=== PATIENT | male | born 1970 | race Caucasian/White ===

== ENCOUNTER 2016-10-18 22:01 | Inpatient (IN) | payer MEDICARE, OTHER ==
--- NOTE | ~2016-10-18 | HP ---
History And Physical [id number] [place]. [address] NAME: KANDACE HOLLAND : 70 STATUS : ADM IN [facility]#: [id number] AGE: 45 ADM/REG DATE : 10/19/16 MR#: [id number] REPORT SERV DATE: 10/19/16 DICTATED BY: THIAGO MARIE DATE: 10/19/16 REPORT STATUS : Draft TRANSCRIBED BY: MODL DATE: 10/19/16 DATE OF ADMISSION: 10/19/2016 CHIEF COMPLAINT: Nausea, vomiting, and diarrhea. HISTORY OF PRESENT ILLNESS: Mr. Holland is a 45-year-old white male with ESRD. He dialyzes at [facility] on Monday, Monday, and Monday through a left arm fistula since 2013. His last dialysis session was on October 14. After dialysis that day. He had been complaining of nausea, vomiting, no oral intake, and diarrhea 10-12 times per day. He did not go to his regularly scheduled dialysis on October 18 because of his GI illness. However, he became progressively more weak and dyspneic and came to the ER late last night. Here he was found to have pulmonary edema on chest x-ray with a BNP greater than 5000. White count was 15.7 thousand, but CT scan showed no acute intraabdominal process. Liver function tests and lipase were normal. His potassium was 7.0, and the dialysis nurse vacation planner was called in for urgent hemodialysis. He was given doses of Levaquin and Flagyl empirically. Clinically, he is much improved. O2 sats are 100% after ultrafiltration of 3.5 kg on dialysis overnight. PAST MEDICAL HISTORY: 1. ESRD, [place] Monday, Monday, Monday left arm fistula since 2013. 2. Hypertension. 3. Anemia. 4. Asthma, COPD with ongoing tobacco abuse. 5. History of laparoscopic cholecystectomy. 6. "Congestive heart failure." EF on documented in the records. He had respiratory failure requiring the ventilator in 03/2016. MEDICATIONS ON ADMISSION: Albuterol inhaler, Norvasc 5 mg b.i.d., aspirin, Nephro-Andrew, Lasix 80 mg daily, hydralazine 100 mg t.i.d., Atrovent inhaler twice a day, losartan 50 mg twice a day, metoprolol 100 mg three times per day, Dulera inhaler 2 puffs twice a day, Prilosec 20 mg daily, Renvela 3200 mg with meals, and sodium bicarb on nondialysis days. FAMILY HISTORY: Noncontributory to current admission. SOCIAL HISTORY: Smokes a pack of cigarettes every 3 days. He is and lives in [place], [place]. REVIEW OF SYSTEMS: Please see HPI for pertinent details. Most significant for nausea, vomiting, poor appetite, diarrhea, black stools, dyspnea, and weakness. PHYSICAL EXAMINATION: VITAL SIGNS: Temperature 98.2, pulse 76, respirations 29, blood pressure 164/100, 57.7 kg with a dry weight recorded at 56.5 kg, 100% O2 saturation on 4 L per nasal cannula. GENERAL: The patient is seen on dialysis with his left arm fistula blood flow of 430 mL/minute. He is in no distress. Awake, alert, oriented, cooperative with the exam. History And Physical [address] [address] NAME: KANDACE HOLLAND : 70 STATUS : ADM IN [facility]#: [id number] AGE: 45 ADM/REG DATE : 10/19/16 MR#: [id number] REPORT SERV DATE: 10/19/16 DICTATED BY: THIAGO MARIE DATE: 10/19/16 REPORT STATUS : Draft TRANSCRIBED BY: KRYSTA DATE: 10/19/16 NEURO: Grossly nonfocal. EYES: Sclerae without icterus. Conjunctivae not injected. RESPIRATORY: He has diffuse bilateral rhonchi without dyspnea. CARDIAC: Regular rate and rhythm with 2/6 murmur. No rub. ABDOMEN: Thin, soft, mildly tender to palpation with some guarding. No rebound or peritoneal signs. Bowel sounds are present throughout. EXTREMITIES: Without edema. SKIN: Without rash. LABORATORY DATA: Sodium 138, potassium 7, bicarb 22, BUN 70, creatinine 13.9, calcium 10.2, albumin 4.1. Liver function tests normal. Lipase 235. BNP greater than 5000. White count 15.7 thousand, hemoglobin 12.1, platelets 483,000. ASSESSMENT AND PLAN: Mr. Holland has ESRD with missed dialysis since October 14 who presents with abdominal pain, leukocytosis, nausea, vomiting, diarrhea, volume overload, hypertension, and hyperkalemia. Admit to the Renal Service. Urgent dialysis has been performed this morning for hyperkalemia and volume overload. Resume home medications. Protect left arm. Empiric antibiotics have been ordered. Check stool studies. Continue supportive care. Watch labs. Clinically much improved with dialysis. We will await the workup to guide the treatment plan. NC/MODL Thiago Marie M.D. / [id number] CC: Kadeem Limon M.D.
--- NOTE | ~2016-10-18 | CN ---
Consultation Report [facility] [address] [place]. [address] NAME: KANDACE BOSS : 70 STATUS : DIS IN PAT#: [id number] AGE: 45 ADM/REG DATE : 10/19/16 MR#: [id number] REPORT SERV DATE: 10/20/16 DICTATED BY: DEYSI BROOKS DATE: 10/20/16 REPORT STATUS : Draft TRANSCRIBED BY: MODJulián DATE: 10/20/16 CARDIOLOGY CONSULTATION DATE OF CONSULTATION: REFERRING REASON: Chest pain during hemodialysis and EKG changes. 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 He was found to have leukocytosis, up to 15,000 with left shift. He was started on Flagyl and Levaquin. His white blood cell count is decreasing, but potassium was found to be elevated up to 7.2, now decreasing to 6 despite to hemodialysis. Of note, he missed several hemodialyses over the last week while he was feeling sick. Earlier today, he developed a poorly defined 1-2/6 chest pain substernally, which was without any radiation. He flipped T-waves in anterior leads. Today, his first troponin is negative at 0.03. Of note, the patient has a long history of cardiomegaly and reported history of congestive heart failure in 2016 when he was intubated for respiratory failure, but no echocardiogram was performed. He has a chronic LVH on electrocardiogram and nonspecific ST-segment changes previously. He is collecting that that he has intermittent poorly defined substernal chest pain over the last 20 years. Of note, he has a history of alcohol abuse and recent history of smoking. He also has some COPD. The patient has some mild dyspnea on exertion, but no palpitation or recent syncope. He has poor functional performance status. He lost about 13 pounds over the last week due to the GI issues. His blood cultures so far are negative, and his white blood cell count is decreasing. His creatinine on admission was 13 and his BUN 70. He is chest pain free now, sitting on a bed. The rest of review of systems is negative. PAST MEDICAL HISTORY: 1. End-stage renal disease, on hemodialysis at least since 2013. 2. Cachexia. 3. Recent nausea, vomiting, and diarrhea with leukocytosis, likely GI infection. 4. Chronic cardiomegaly. 5. History of congestive heart failure with unknown ejection fraction. 6. Hypertension. 7. Smoking dependency. 8. History of alcohol abuse until a few years ago. 9. History of hypoxic respiratory failure with endotracheal intubation in 2016. 10.Chronic anemia. 11.Problems with medical compliance. ALLERGIES: FORTAZ. SOCIAL HISTORY: The patient is . He lives alone. His mother has been at the bedside. 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 He has been on disability now. He Consultation Report [address] [address] NAME: KANDACE BOSS : 70 STATUS : DIS IN [facility]#: [id number] AGE: 45 ADM/REG DATE : 10/19/16 MR#: [id number] REPORT SERV DATE: 10/20/16 DICTATED BY: DEYSI BROOKS DATE: 10/20/16 REPORT STATUS : Draft TRANSCRIBED BY: KRYSTA DATE: 10/20/16 has been smoking for last few years one pack a day. Previously, he has been abusing alcohol, the patient is stating he has been alcoholic since age 10, but quit a few years ago. Denies using intravenous drugs. He is ambulating without any support. FAMILY HISTORY: Negative for sudden cardiac or premature in the family. HOME MEDICATIONS: Albuterol, Norvasc 5 mg twice a day, aspirin 325 mg once a day, Lasix 80 mg once a day, hydralazine 100 mg three times a day, losartan 50 mg twice a day, metoprolol 100 mg three times a day. Losartan is on hold now. He also received Levaquin and Flagyl in the hospital. PHYSICAL EXAMINATION: GENERAL: No acute distress. The patient looks older than his biological age. VITAL SIGNS: Blood pressure 140/101, heart rate 66 and regular. HEENT: Pupils reactive to light and accommodation. Moist mucosa membrane. NECK: No JVD. Normal carotid upstroke. No carotid bruits. LUNGS: Decreased breath sounds, but no crackles. COR: Normal S1, S2. No S3 or S4. No significant rub or murmurs. ABDOMEN: Distended and nontender. EXTREMITIES: Lower extremity with decreased pedal pulses bilaterally, but no edema. The patient is cachectic. SKIN: Warm with normal turgor. MS: No kyphosis. NEURO/PSY: Alert and oriented. Nonfocal. DATA: CBC remarkable for chronic anemia, hemoglobin 12 and leukocytosis, 15,000 with left shift, now decreasing to 9000. Sodium 133; potassium initially 7, today 6; BUN 70; creatinine decreasing from 13.9 on admission to 9.[address] of the abdomen does not reveal any acute pathology, except renal cyst, some enlarged paraesophageal nodes, and cardiomegaly. Initial BNP was more than 5000. His troponin today was 0.03. Electrocardiogram today revealed normal sinus rhythm at 66 beats per minute with deep negative T-wave in anterior leads, which is new compared to admission electrocardiogram with chronic signs of LVH, but no ST elevation. Chest x-ray shows some perihilar infiltrates initially. ASSESSMENT AND PLAN: 1. Nausea, vomiting, diarrhea and leukocytosis, likely GI infection. 2. Hyperkalemia in the setting of missing hemodialysis. 3. Cachexia. 4. End-stage renal disease, on hemodialysis. 5. Chest pain, likely coronary artery disease with demand ischemia. 6. Cardiomegaly with history of congestive heart failure. The patient is now hemodynamically stable and chest pain free. He will continue to get aspirin. We will start him on nitro paste and continue beta-blockers. ARBs on hold due to his hyperkalemia. Very likely, he will need coronary arteriogram while he reported a long Consultation Report [address] [place]. [address] NAME: KANDACE BOSS : 70 STATUS : DIS IN PAT#: [id number] AGE: 45 ADM/REG DATE : 10/19/16 MR#: [id number] REPORT SERV DATE: 10/20/16 DICTATED BY: DEYSI BROOKS DATE: 10/20/16 REPORT STATUS : Draft TRANSCRIBED BY: KRYSTA DATE: 10/20/16 history of chest pains, has documented cardiomegaly and multiple risk factors. When it will be safe from the hyperkalemia standpoint, we will proceed, likely on Monday after several hemodialyses will be performed. We will plan for echocardiogram tomorrow. We will also follow cardiac enzymes. The risks and benefits of arteriogram explained to the patient and he agreed to proceed. OJL/MODL Deysi Brooks M.D. / [id number] CC: Kadeem Limon M.D.
[~2016-10-18 22:01] MED LIST: APRES50 PO; ASA5GR PO; ASABAYER PO; ATROVENT HFA17 MCG INH; AUG500 PO; COZ25 PO; COZ50 PO; DULERA 100 MCG/13 GM INH; L40 PO; L80 PO; NEPHRO-VITE PO; NORV5 PO; PRILO PO; SODBICAR10 PO; TOPXL100 PO; VENTOLIN HFA
[2016-10-18 23:34] LABS: BASOPHILS 0.4 %; BASOPHILS ABSOLUTE 0.06 10/3/uL (0.0-0.16); EOSINOPHILS 2.2 %; EOSINOPHILS ABSOLUTE 0.34 10/3/uL (0.0-0.53); IMMATURE GRANULOCYTES 0.3 %; IMMATURE GRANULOCYTES ABSOLUTE 0.04 10/3/uL (0.0-0.11); LYMPHOCYTES 8.4 %; LYMPHOCYTES ABSOLUTE 1.32 10/3/uL (0.67-4.30); MEAN CORPUSCULAR HEMOGLOB 35.5 pg (26.0-34.0); MEAN PLATELET VOLUME 9.9 fL (9.2-13.0); MONOCYTES ABSOLUTE 0.78 10/3/uL (0.21-1.20); NEUTROPHILS 83.7 %; NEUTROPHILS ABSOLUTE 13.18 10/3/uL (2.02-8.40); RBC DISTRIBUTION WIDTH 16.2 % (12.0-16.0)
[2016-10-18 23:39] LABS: ER CBC TAT 0 Hrs 10 MinsNP; HEMATOCRIT 37.4 % (40.0-51.0); HEMOGLOBIN 12.1 g/dL (13.6-17.8); MANUAL DIFF NO %; MEAN CORPUS HGB CONC 32.4 g/dL (32.0-36.0); MEAN CORPUSCULAR VOLUME 109.7 fL (80-100); PLATELET COUNT 483 10/3/uL (150-400); RED CELL COUNT 3.41 10/6/uL (4.7-6.1); WHITE BLOOD CELLS 15.7 10/3/uL (4.5-10.5)
[2016-10-18 23:55] LABS: CHLORIDE, SERUM 100 MMOL/L (96-112); CO2 (CARBON DIOXIDE) 22 MMOL/L (24-34); GLUCOSE, SERUM 97 MG/DL (60-99); SGOT(AST) 9 U/L (5-40); SGPT(ALT) 13 U/L (5-65); SODIUM, SERUM 138 MMOL/L (135-148); TOTAL BILIRUBIN 0.5 MG/DL (0-1.2); TOTAL PROTEIN 8.7 G/DL (6.0-8.5)
[2016-10-19 00:04] LABS: A/G RATIO 0.9 (0.7-1.9); ALBUMIN 4.1 G/DL (3.5-5.0); ALKALINE PHOSPHATASE 102 U/L (45-117); BUN (BLOOD UREA NITROGEN) 70 MG/DL (6-23); CALCIUM, SERUM 10.2 MG/DL (8.5-10.4); GFR AFRICAN AMERICAN 4 ML/MIN (>=60); GFR NON AFRICAN AMERICAN 4 ML/MIN (>=60); GLOBULIN 4.6 G/DL (2.5-4.1)
[2016-10-19 00:45] LABS: ASCORBIC ACID (UR NOT ORDER) NEG (NEG); BILIRUBIN, URINE NEGATIVE (NEG); ER URINALYSIS TAT 0 Hrs 00 Mins; KETONE, URINE TRACE MG/DL (NEG); LEUKOCYTE ESTERASE(NOT OR NEG (NEG); NITRITE (URINE) NEG (NEG); WBC (NOT ORDERED) (RFLEX) 2 (0-5)
[2016-10-19] MEDS ORDERED: TOPXL100 PO (01:14)
[2016-10-19] MEDS ORDERED: NORV5 PO (01:15)
[2016-10-19] MEDS ORDERED: COZ50 PO (01:15)
[2016-10-19] MEDS ORDERED: PRILO PO (01:15)
[2016-10-19] MEDS ORDERED: HYDRALAZINE100 MG PO (01:16)
[2016-10-19] MEDS ORDERED: SEVE800T PO (01:17)
[2016-10-19] MEDS ORDERED: PROAIR HFA INH (01:18)
[2016-10-19] MEDS ORDERED: DULERA 100 MCG/13 GM INH (01:18)
[2016-10-19] MEDS ORDERED: NEPHRO-VITE PO (01:18)
[2016-10-19] MEDS ORDERED: IPRA17AE INH (01:19)
[2016-10-19] MEDS ORDERED: ASABAYER PO (01:19)
[2016-10-19] MEDS ORDERED: L80 PO (01:20)
[2016-10-19] MEDS ORDERED: SODBICAR10 PO (01:21)
[2016-10-20 08:02] LABS: BASOPHILS 1.2 %; BASOPHILS ABSOLUTE 0.12 10/3/uL (0.0-0.16); EOSINOPHILS 6.5 %; EOSINOPHILS ABSOLUTE 0.63 10/3/uL (0.0-0.53); HEMOGLOBIN 11.5 g/dL (13.6-17.8); IMMATURE GRANULOCYTES 0.4 %; IMMATURE GRANULOCYTES ABSOLUTE 0.04 10/3/uL (0.0-0.11); LYMPHOCYTES 15.8 %; LYMPHOCYTES ABSOLUTE 1.53 10/3/uL (0.67-4.30); MEAN CORPUS HGB CONC 32.9 g/dL (32.0-36.0); MEAN CORPUSCULAR HEMOGLOB 34.6 pg (26.0-34.0); MEAN PLATELET VOLUME 9.7 fL (9.2-13.0); MONOCYTES 17.3 %; MONOCYTES ABSOLUTE 1.67 10/3/uL (0.21-1.20); NEUTROPHILS 58.8 %; NEUTROPHILS ABSOLUTE 5.68 10/3/uL (2.02-8.40); PLATELET COUNT 443 10/3/uL (150-400); RBC DISTRIBUTION WIDTH 15.6 % (12.0-16.0); RED CELL COUNT 3.32 10/6/uL (4.7-6.1); WHITE BLOOD CELLS 9.7 10/3/uL (4.5-10.5)
[2016-10-20 08:03] LABS: MANUAL DIFF NO %; MEAN CORPUSCULAR VOLUME 105.4 fL (80-100)
[2016-10-20 08:10] LABS: ALBUMIN 3.2 G/DL (3.5-5.0); BUN (BLOOD UREA NITROGEN) 51 MG/DL (6-23); CHLORIDE, SERUM 98 MMOL/L (96-112); CO2 (CARBON DIOXIDE) 25 MMOL/L (24-34); CREATININE 9.93 MG/DL (0.70-1.30); GFR AFRICAN AMERICAN 7 ML/MIN (>=60); GFR NON AFRICAN AMERICAN 6 ML/MIN (>=60); GLUCOSE, SERUM 97 MG/DL (60-99); PHOSPHORUS, SERUM 5.2 MG/DL (2.5-4.5); POTASSIUM, SERUM 6.2 MMOL/L (3.5-5.3); SODIUM, SERUM 133 MMOL/L (135-148)
[2016-10-20 09:57] LABS: CPK 62 U/L (0-200); CPK (IF ELEVATED MB BANDS) 62 U/L (0-200); TROPONIN I 0.03 NG/ML (<0.05)
[2016-10-20 09:58] LABS: CK-MB 1.4 NG/ML
== END 2016-10-20 17:26 | disposition left against medical advice (07) | DRG 640 ==
LOC: ER 22:01 → 4SO 10-19 01:25
PROVIDERS: Internal Medicine Nephrology; Nurse Practitioner Acute Care
PROC: 5A1D60Z (ICD-10-PCS; principal; 2016-10-19)
DX: E87.79 Other fluid overload (principal); N18.6 End stage renal disease; I13.2 Hypertensive heart and chronic kidney disease with heart failure and with stage 5 chronic kidney disease, or end stage renal disease; R64 Cachexia; I24.8 Other forms of acute ischemic heart disease; Z68.1 Body mass index [BMI] 19.9 or less, adult; E87.5 Hyperkalemia; I50.9 Heart failure, unspecified; R19.7 Diarrhea, unspecified; D63.1 Anemia in chronic kidney disease; J44.9 Chronic obstructive pulmonary disease, unspecified; F17.210 Nicotine dependence, cigarettes, uncomplicated; Z79.82 Long term (current) use of aspirin; Z91.15 Patient's noncompliance with renal dialysis; Z79.899 Other long term (current) drug therapy; Z99.2 Dependence on renal dialysis; F10.10 Alcohol abuse, uncomplicated; B99.8 Other infectious disease
CPT/HCPCS: 71010; 74176; 80053; 80069; 81001; 82550; 82553; 83605; 83690; 83880; 84132; 84484; 85025; 87040; 93005; 94640; 96374; 99291; A9270-GY; G0257; G0480; J0360; J0610; J1956; J2405